=== PATIENT | female | born 1985 | race Two or more races ===

== ENCOUNTER 2016-04-10 16:25 | Emergency (ER) | payer OTHER | END 2016-04-10 17:48 | disposition home or self-care (01) | LOC: ED 16:25 | DX: S29.012A Strain of muscle and tendon of back wall of thorax, initial encounter (principal); S46.912A Strain of unspecified muscle, fascia and tendon at shoulder and upper arm level, left arm, initial encounter; V43.52XA Car driver injured in collision with other type car in traffic accident, initial encounter; Y92.410 Unspecified street and highway as the place of occurrence of the external cause ==